=== PATIENT | female | born 2005 | race American Indian/Alaskan Native ===

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

== ENCOUNTER 2023-02-06 20:19 | Emergency (ER) | payer MEDICAID ==
[~2023-02-06] VITALS: Ht 149.9 cm; Wt 68.2 kg
[2023-02-06 20:41] VITALS: BP 113/68; PULSE 87; RESP 16; TEMP 98.4; O2SAT 98
[2023-02-06 21:32] LABS: URINE HCG NEGATIVE (NEG)
[2023-02-06 21:42] LABS: BILIRUBIN,URINE NEGATIVE (Neg); CLARITY,URINE CLOUDY (Clear); COLOR,URINE YELLOW (Yellow); GLUCOSE, URINE NEGATIVE (Neg); KETONES,URINE NEGATIVE (Neg); LEUKOCYTE ESTERASE ,URINE NEGATIVE (Neg); NITRITES, URINE NEGATIVE (Neg); OCCULT BLOOD,URINE NEGATIVE (Neg); PROTEIN,URINE TRACE mg/dl (Neg); UROBILINOGEN,URINE 0.2 E.U/dL (0.2-1.0)
[2023-02-06 21:46] LABS: UA COLLECTION TYPE CLN CATCH MIDSTREAM
[2023-02-06 21:48] LABS: HYALINE CASTS 0-3 /LPF (NEGATIVE); MUCUS STRANDS MANY /LPF (Neg); SQUAMOUS EPITHELIAL CELL,UR MANY /LPF (FEW)
[2023-02-06 21:49] LABS: RBC,URINE 0-2 /HPF (0-2); WBC,URINE 20-30 /HPF (0-4)
[2023-02-06 21:50] LABS: BACTERIA,URINE 1+ /HPF (Neg); CAL OXALATE CRYSTALS 4+ /HPF (NEGATIVE)
[2023-02-06 22:02] LABS: BASOPHILS # (AUTO) 0.1 X10'3 (0-0.2); BASOPHILS % (AUTO) 0.8 % (0-1); EOSINOPHILS # (AUTO) 0.1 X10'3 (0-0.9); EOSINOPHILS % (AUTO) 1.1 % (0-6); HEMOGLOBIN 14.3 g/dl (12.0-16.0); LYMPHOCYTES # (AUTO) 1.6 X10'3 (1.1-4.8); MEAN CORPUSCULAR VOLUME 82.3 FL (78-98); MEAN PLATELET VOLUME 7.3 FL (7.4-10.4); MONOCYTES # (AUTO) 0.5 X10'3 (0-0.9); MONOCYTES % (AUTO) 5.8 % (2-12); NEUTROPHILS # (AUTO) 5.8 X10'3 (1.8-7.7); NEUTROPHILS % (AUTO) 72.3 % (42-75); PLATELET COUNT 292 X10'3 (140-440); RED BLOOD COUNT 5.11 X10'6 (4.20-5.60); WHITE BLOOD COUNT 8.1 X10'3 (4.5-11.0)
[2023-02-06 22:04] LABS: ALANINE AMINOTRANSFERASE 38 U/L (12-78); ALBUMIN 4.4 G/DL (3.4-5.0); ALBUMIN/GLOBULIN RATIO 1.3 (1.1-1.5); ALKALINE PHOSPHATASE 52 IU/L (20-180); ANION GAP 9 (8-16); ASPARTATE AMINO TRANSFERASE 20 U/L (10-37); BILIRUBIN,TOTAL 0.2 MG/DL (0.1-1.0); BLOOD UREA NITROGEN 13 MG/DL (7-18); BUN/CREATININE RATIO 15.5 (10.0-20.0); CHLORIDE 103 MMOL/L (99-107); CREATININE 0.84 MG/DL (0.40-0.90); GLUCOSE 102 MG/DL (70-104); LIPASE 84 U/L (73-393); POTASSIUM 3.1 MMOL/L (3.5-5.1); SODIUM 141 MMOL/L (135-145); TOTAL CARBON DIOXIDE 28.8 MMOL/L (24-32); TOTAL PROTEIN 7.8 G/DL (6.4-8.2); eCRCL 73 ML/MIN; eGFR 87 ML/MIN
[2023-02-06] MEDS ORDERED: POTASSIUM BICARB 20meq eff tab 20 MEQ TABLET.EFF PO ONE (22:45)
[2023-02-06] MEDS ORDERED: potassium Cl 20 mEq SR tablet PO STA (22:47)
== END 2023-02-06 23:33 | disposition home or self-care (01) ==
LOC: ER 20:19
DX: K62.5 Hemorrhage of anus and rectum (principal); E87.6 Hypokalemia; K59.00 Constipation, unspecified; Z79.899 Other long term (current) drug therapy; Z88.8 Allergy status to other drugs, medicaments and biological substances
CPT/HCPCS: 36415; 80053; 81001; 81025; 83690; 85025; 99283

== ENCOUNTER 2025-01-24 16:31 | Emergency (ER) | payer MEDICAID, OTHER ==
[~2025-01-24] VITALS: Ht 149.9 cm; Wt 65.0 kg
[2025-01-24 16:55] VITALS: BP 104/67; PULSE 72; RESP 16; TEMP 97.2; O2SAT 98
--- NOTE | 2025-01-24 17:03 | Physician Documentation ---
History of Present Illness ~ Chief Complaint: Foot pain Stated Complaint: FOOT INJURY Time Seen by MD: 17:03 Primary Medical Doctor: Sharon Howell HPI 19 yr old female presents to the emergency department. She reports that she was at a team building activity at a local [place] when she accidentally stepped on a large rock with her left foot. Has had pain with weight-bearing ever since, and does have bruising to the area. Denies any other concerns including other injuries, chills, fever, CP, dyspnea. Tetanus witin 5 years: No (Unknown) Medication Reconciliation Allergies: Coded Allergies: diphenhydramine (Unverified Adverse Reaction, Mild, ANXIETY, 03/08/22) Scheduled PRN Dicyclomine HCl (Dicyclomine HCl), 1 TAB PO TID PRN for abdominal cramps Past Medical History Past Medical History: *GI/HEPATOBILIARY* Past Surgical History: noncontributory Alcohol Use: None Drug Use: none Review of Systems ROS As stated above in the HPI, otherwise all systems are reviewed and negative. Physical Exam Vital Signs: Temperature: 97.2, Heart Rate: 72, Respiratory Rate: 16, BP: 104/67, Pulse Oximetry: 98, Weight: 65.000 Oxygen Flow Rate: 0 Physical Exam General: Alert, no apparent distress. Neck: Full range of motion. Respiratory: Lungs clear, no respiratory distress. Chest: No accessory muscle use. Cardiovascular: Regular rate and rhythm, no murmurs. Gastrointestinal: Soft, nontender, nondistended. Bowels sounds present. Extremities: Normal range of motion, no deformity. Ecchymosis plantar surface left foot. Neurologic: Oriented x4. Psychiatric: Normal mood and affect. Skin: Normal color, warm and dry. No edema, no ecchymosis. Progress Results/Orders Results/Orders Orders - TAMRA PEREZ NP Foot, Complete (3vw Min) (01/24/25 16:59) Ortho Orders (01/24/25 ) Completed Orders - TAMRA PEREZ NP Foot, Complete (3vw Min) (01/24/25 16:59) Vital Signs 01/24/25 16:55 Temp 97.2 Pulse 72 Resp 16 B/P (MAP) 104/67 Pulse Ox 98 O2 Flow Rate 0 EKG/XRAY/CT/US/VASC/MRI Bone/Soft Tissue X-Ray (Ext.) : Additional Comment [facility] [address] [facility] [id number] DIAGNOSTIC RADIOLOGY Patient: MAKENZIE WERNER Medical Record: [id number] [facility] : 2005, Age: 19 Sex: Female Location: ER Patient Status: [facility] ER Service Date/Time: 01/24/251658 Ordering Physician: TAMRA PEREZ NP Exam: FOOT, COMPLETE (3VW MIN) EXAM: DI FOOT, COMPLETE (3VW MIN) REASON FOR EXAM: trauma, pain plantar aspect left foot TECHNIQUE: AP, lateral, and oblique views of the left foot are submitted for review. COMPARISON: HAND, COMPLETE (3VW MIN) on DOS: 04/23/22 FINDINGS: There is no acute fracture or dislocation. The joint spaces are grossly maintained. The soft tissues are unremarkable. IMPRESSION: No acute fracture or dislocation. Electronically Signed by:KOKO GARCIA MD Date & Time: 01/24/251736 Dictated by: KOKO GARCIA MD Dictation date and time: 01/24/25 172 Primary Care Provider: NO PRIMARY CARE PROVIDER cc: TAMRA PEREZ NP ~ Medical Decision Making General Diff Dx:Considerations: Include: Abrasion, Contusion, Fracture, Hematoma, Laceration, Malunion, Neurovascular injury, Open fracture, Sprain, Ulcer Departure Time of Disposition: 17:56 Disposition: 01 HOME / SELF CARE / HOMELESS Impression: Primary Impression: Foot pain Qualified Codes: M79.672 - Pain in left foot Condition: Stable Discharge Instructions: Abrasion, Musculoskeletal Pain Additional Instructions: Rest, ice, use giorgi wrap as desired. Elevate foot frequently. Use [id number] Tylenol or ibuprofen as desired for pain. Follow the label instructions. Return if worse, otherwise follow up with the primary care provider. Referrals: NO PRIMARY CARE PROVIDER (PCP) Education Educated: Patient Educated regarding: diagnosis, treatment, prognosis, need for follow up Signature Scribe Signature: x Attestation: The note accurately reflects work and decisions made by me.Tamra Sheth NP 01/24/25 17:02 TAMRA PEREZ NP Jan 24, 2025 17:03
--- NOTE | 2025-01-24 17:39 | RADIOLOGY REPORT ---
EXAM: DI FOOT, COMPLETE (3VW MIN) REASON FOR EXAM: trauma, pain plantar aspect left foot TECHNIQUE: AP, lateral, and oblique views of the left foot are submitted for review. COMPARISON: HAND, COMPLETE (3VW MIN) on DOS: 04/23/22 FINDINGS: There is no acute fracture or dislocation. The joint spaces are grossly maintained. The sof t tissues are unremarkable. IMPRESSION: No acute fracture or dislocation.
== END 2025-01-24 18:10 | disposition home or self-care (01) ==
LOC: ER 16:31
DX: M79.672 Pain in left foot (principal)
CPT/HCPCS: 73630; 99283; A6449